=== PATIENT | male | born 1995 | race Caucasian/White ===

== ENCOUNTER 2016-04-19 17:22 | Emergency (ER) | payer BC ==
[2016-04-19 17:32] VITALS: RESP 18; O2SAT 94
[2016-04-19] MEDS ORDERED: ONDANSETRON 4 MG/2 ML VIAL ONE (17:32)
[2016-04-19] MEDS ORDERED: NS 1,000 ML IV ONE ×3 (17:34→18:11)
[2016-04-19] MEDS ORDERED: METOCLOPRAMIDE 10 MG/2 ML VIAL IVP ONE (17:34)
--- NOTE | 2016-04-19 17:36 | EDPHY ---
H & P Time Seen by Provider: 04/19/16 17:27 HPI/ROS: CHIEF COMPLAINT: Vomiting and diarrhea HISTORY OF PRESENT ILLNESS: Patient was feeling tired on Thursday and Thursday dinner started having vomiting and diarrhea. No coffee-ground emesis or hematemesis and no melena. He had 1 speck of red blood today with diarrhea. No recent fever or foreign travel. No abdominal pain. Symptoms moderate and was seen yesterday at urgent care and presents today because he is still symptomatic despite for oral Zofran and 1 oral Compazine today. REVIEW OF SYSTEMS: Eye: no change in vision ENT: no sore throat Cardiac: no chest pain or syncope Pulmonary: no cough or SOB Abdomen: HPI Musculoskeletal: no back pain Skin: no rash Neuro: Mild headache Constitutional: no fever : no urinary symptoms A comprehensive 10 point review of systems is otherwise negative aside from elements mentioned in the history of present illness. PAST MEDICAL HISTORY: Negative Social history: Last alcohol was 1 week ago with his mother General Appearance: Alert and conversant, cooperative. Eyes: No scleral icterus. ENT, Mouth: Slightly dry mucous membranes Respiratory: Normal respiratory effort, breath sounds equal, lungs are clear to auscultation. Cardiovascular: Regular rate and rhythm. Gastrointestinal: Abdomen is soft and non tender. Not distended no rebound or guarding. Neurological: Alert and oriented x3. Normally conversant. Face symmetric, normal movement and sensation in all extremities. Skin: Warm and dry, no rashes. Musculoskeletal: No peripheral edema and no joint swelling. Psychiatric: Not agitated. Emergency Department course/MDM: Benign abdominal exam. Patient looks well and nontoxic. Likely viral gastroenteritis or food related. Normal saline 2 L IV for vomiting, Reglan 10 mg IV, chemistry panel. 1809: Hemoglobin of 20 noted likely due to hemoconcentration from dehydration. 1924: Results discussed, feels much better, no vomiting in the emergency department. Smoking Status: Former smoker Constitutional: Initial Vital Signs Temperature (C) 36.9 C 04/19/16 17:28 Heart Rate 106 H 04/19/16 17:28 Respiratory Rate 18 04/19/16 17:28 Blood Pressure 138/107 H 04/19/16 17:28 O2 Sat (%) 94 04/19/16 17:28 O2 Delivery Mode Room Air Allergies/Adverse Reactions: No Known Allergies Allergy (Unverified 04/19/16 17:28) Home Medications: Medication Instructions Recorded Advair 100/50 (*) 04/19/16 Medical Decision Making Differential Diagnosis: Differential considered including but not limited to gastroenteritis, food poisoning, appendicitis, metabolic abnormality - Data Points Laboratory Results: Laboratory Results 04/19/16 17:40 04/19/16 17:40 04/19/16 04/19/16 17:40 17:40 WBC 8.65 10^3/uL 10^3/uL (3.80-9.50) RBC 6.56 10^6/uL H 10^6/uL (4.40-6.38) Hgb 20.3 g/dL H* g/dL (13.7-17.5) Hct 54.3 % H % (40.0-51.0) MCV 82.8 fL fL (81.5-99.8) MCH 30.9 pg pg (27.9-34.1) MCHC 37.4 g/dL H g/dL (32.4-36.7) RDW 11.7 % % (11.5-15.2) Plt Count 179 10^3/uL 10^3/uL (150-400) MPV 10.9 fL fL (8.7-11.7) Neut % (Auto) 71.4 % % (39.3-74.2) Lymph % (Auto) 11.8 % L % (15.0-45.0) [place] % (Auto) 14.1 % H % (4.5-13.0) Eos % (Auto) 2.3 % % (0.6-7.6) Baso % (Auto) 0.2 % L % (0.3-1.7) Nucleat RBC Rel Count 0.0 % % (0.0-0.2) Absolute Neuts (auto) 6.17 10^3/uL 10^3/uL (1.70-6.50) Absolute Lymphs (auto) 1.02 10^3/uL 10^3/uL (1.00-3.00) Absolute Monos (auto) 1.22 10^3/uL H 10^3/uL (0.30-0.80) Absolute Eos (auto) 0.20 10^3/uL 10^3/uL (0.03-0.40) Absolute Basos (auto) 0.02 10^3/uL 10^3/uL (0.02-0.10) Absolute Nucleated RBC 0.00 10^3/uL 10^3/uL (0-0.01) Immature Gran % 0.2 % % (0.0-1.1) Immature Gran # 0.02 10^3/uL 10^3/uL (0.00-0.10) Sodium 135 mEq/L mEq/L (134-144) Potassium 4.0 mEq/L mEq/L (3.5-5.2) Chloride 96 mEq/L L mEq/L (97-110) Carbon Dioxide 25 mEq/l mEq/l (22-31) Anion Gap 14 mEq/L mEq/L (8-16) BUN 16 mg/dL mg/dL (7-23) Creatinine 1.2 mg/dL mg/dL (0.7-1.3) Estimated GFR > 60 Glucose 115 mg/dL H mg/dL (70-100) Calcium 9.7 mg/dL mg/dL (8.5-10.4) Medications Given: Discontinued Medications Sodium Chloride (Ns) 1,000 mls @ 0 mls/hr IV ONCE ONE PRN Reason: Wide Open Stop: 04/19/16 17:35 Last Admin: 04/19/16 17:41 Dose: 1,000 mls Sodium Chloride (Ns) 1,000 mls @ 0 mls/hr IV ONCE ONE PRN Reason: Wide Open Stop: 04/19/16 17:35 Last Admin: 04/19/16 18:00 Dose: 1,000 mls Metoclopramide HCl (Reglan Injection) 10 mg IVP EDNOW ONE Stop: 04/19/16 17:35 Last Admin: 04/19/16 18:00 Dose: 10 mg Ondansetron HCl (Zofran) 4 mg IVP EDNOW ONE Stop: 04/19/16 17:41 Last Admin: 04/19/16 17:40 Dose: 4 mg Departure - Departure Disposition: Home, Routine, Self-Care Clinical Impression: Vomiting and diarrhea Condition: Good Instructions: Dehydration (ED) Referrals: JAYA LINDSEY [Other] - As per Instructions
[2016-04-19] MEDS ORDERED: ONDANSETRON 4 MG/2 ML VIAL IVP ONE (17:40)
[2016-04-19 18:01] LABS: % IMMATURE GRANULYOCYTES 0.2 % (0.0-1.1); ABSOLUTE IMMATURE GRANULOCYTES 0.02 10^3/uL (0.00-0.10); ADD DIFF? NO; ADD MORPH? NO; ADD SCAN? NO; ATYPICAL LYMPHOCYTE FLAG 30 (0-99); FRAGMENT RBC FLAG 0 (0-99); HEMATOCRIT 54.3 % (40.0-51.0); LEFT SHIFT FLG 0 (0-99); LIPEMIA HEMOLYSIS FLAG 90 (0-99); MEAN CELL HEMOGLOBIN 30.9 pg (27.9-34.1); MEAN CELL HEMOGLOBIN CONCENTR. 37.4 g/dL (32.4-36.7); MEAN CELL VOLUME 82.8 fL (81.5-99.8); MEAN PLATELET VOLUME 10.9 fL (8.7-11.7); PLATELET CLUMPS FLAG 0 (0-99); PLATELET COUNT 179 10^3/uL (150-400); RED BLOOD CELL COUNT 6.56 10^6/uL (4.40-6.38); RED CELL DISTRIBUTION WIDTH 11.7 % (11.5-15.2)
[2016-04-19 18:07] LABS: HEMOGLOBIN 20.3 g/dL (13.7-17.5)
[2016-04-19 18:11] LABS: ANION GAP 14 mEq/L (8-16); CALCIUM 9.7 mg/dL (8.5-10.4); CARBON DIOXIDE 25 mEq/l (22-31); CHLORIDE 96 mEq/L (97-110); CREATININE 1.2 mg/dL (0.7-1.3); GLOMERULAR FILTRATION RATE > 60; GLUCOSE 115 mg/dL (70-100); SODIUM 135 mEq/L (134-144)
[2016-04-19 20:20] VITALS: BP 153/82; PULSE 92; TEMP 98.2
== END 2016-04-19 20:18 | disposition home or self-care (01) ==
DX: R19.7 Diarrhea, unspecified (principal); R11.10 Vomiting, unspecified; Z87.891 Personal history of nicotine dependence
CPT/HCPCS: 96374; J2405; J2765